=== PATIENT | female | born 1950 | race Caucasian/White ===

== ENCOUNTER → 2016-08-22 16:47 | Outpatient (CLI) | payer BC ==
[2016-06-16 09:18] VITALS: BMI 25.1
[~2016-08-22 16:47] MED LIST: EXFORGE HCT 101 EAC2 PO; LEVOXYL200 MCG PO; PRAVACHOL40 MG PO; PROTONIX40 MG PO; SKELAXIN800 MG PO; ULTRAM50 MG PO; ZEBETA5 MG PO
== END | disposition home or self-care (01) ==
LOC: D.MAMMO 13:00
DX: N64.4 Mastodynia (principal)

== ENCOUNTER 2017-04-17 09:18 | Day surgery (SDC) | payer BC ==
[~2017-04-17] VITALS: Ht 170.2 cm; Wt 72.7 kg
--- NOTE | ~2017-04-17 | OP ---
PATIENT NAME: ALYSSA PUCKETT MEDICAL RECORD: [id number] :48 LOCATION:D.OPS ADMISSION DATE: SURGEON: HUGH OBRIEN MD DATE OF OPERATION: 04/17/2017 PREOPERATIVE DIAGNOSES: 1. Gastroesophageal reflux. 2. Moreno esophagus. POSTOPERATIVE DIAGNOSES: 1. Gastroesophageal reflux. 2. Moreno esophagus. 3. Hiatal hernia. PROCEDURE: Esophagogastroduodenoscopy with antral and distal esophageal biopsies. SURGEON: Hugh Obrien MD PROBATION AGENT: None. BLOOD LOSS: Minimal. ANESTHESIA: IV sedation. COMPLICATIONS: None. The risks, possible complications, and alternatives to the procedure were explained to the patient. She elects to proceed. OPERATIVE COURSE: The patient was conveyed to the endoscopy suite electively on 04/17/2017. IV sedation was induced by the anesthesia staff. A bite block was inserted. A gastroscope was inserted into the mouth. It was advanced easily into the hypopharynx. The esophagus was easily intubated as were stomach and duodenum. Upon withdrawal, retroflexed and angulus views were obtained. Antral biopsies were obtained. Distal esophageal biopsies were obtained. The endoscope was then withdrawn under direct vision. I will see the patient in my office in 2-3 weeks. I will review the results of the biopsies with her at that time. My next planned surveillance upper endoscopy with biopsies will be in 2 years. TRANSINT:[id number] Voice Confirmation ID: [id number] DOCUMENT ID: [id number] HUGH OBRIEN MD CC: LORRI FUENTES DO [id number] DICTATION DATE: 04/17/17 1425 STENOGRAPHER SECRETARY: 04/17/171917 [facility] 04/17/[address] [facility] [address] [place] [address]
--- NOTE | ~2017-04-17 | HP ---
PATIENT: ALYSSA PUCKETT MEDICAL RECORD: [id number] ACCOUNT: [id number] LOCATION:[place] : 48 ADMISSION DATE: 04/17/17 HISTORY AND PHYSICAL EXAMINATION CHIEF COMPLAINT: Moreno esophagus, also gastroesophageal reflux. HISTORY OF PRESENT ILLNESS: The patient is here for EGD with biopsies. The patient has a history of Moreno's. This was diagnosed about a year ago. Interestingly, her father of esophageal cancer. ALLERGIES: PENICILLIN WELL BETADINE. HOME MEDICATIONS: Synthroid, Exforge, Pravachol, Protonix, Skelaxin, tramadol, Zebeta. SOCIAL HISTORY: Ex-smoker. PAST MEDICAL AND SURGICAL HISTORY: Ankle surgery, arthritis, hypothyroidism, on replacement therapy, gastroesophageal reflux, history of hiatal hernia, hypertension, history of cardiac rhythm problems. REVIEW OF SYSTEMS: Negative for CVA or seizures. Negative for renal disease or hepatitis. PHYSICAL EXAMINATION: GENERAL: The patient does not appear acutely ill. She does not appear chronically ill. VITAL SIGNS: Reviewed. HEAD: External ears appear normal. EYES: Extraocular movements are intact. NECK: Trachea is midline. CHEST: No intercostal retractions. PULMONARY: Nonlabored. No stridor. ABDOMEN: There is no peritonitis. IMPRESSION: 1. Moreno esophagus 2. Gastroesophageal reflux. PLAN: EGD with biopsy. TRANSINT:[id number] Voice Confirmation ID: [id number] DOCUMENT ID: [id number] HISTORY AND PHYSICAL [id number] ALYSSA PUCKETT MARILUZ OBRIEN MD CC: [id number] DICTATION DATE: 04/17/17 1403 SUPERVISOR TUBING: 04/17/17 1426 [id number] [place] [address]
[2017-04-17 10:06] VITALS: BP 131/76; Ht 170.2 cm; Wt 72.7 kg
[2017-04-17 10:37] LABS: BASOPHILS 0.2 % (0-2); EOSINOPHILS 5.4 % (0-7); HEMATOCRIT 36.7 % (36.0-48.0); HEMOGLOBIN 12.1 g/dL (12-16); IMMATURE GRANULOCYTES 0.2 % (0-5); LYMPHOCYTES 30.7 % (15-50); MCH 28.6 pg (26.0-34.0); MCV 86.8 fL (80.0-100.0); MEAN PLATELET VOLUME 10.4 fL (7.4-10.4); MONOCYTES 12.8 % (2-11); NEUTROPHILS 50.7 % (40-80); PLATELET COUNT 225 10x3/uL (130-400); RBC 4.23 10x6/uL (4.00-5.40); RDW 16.1 % (11.5-14.5); WBC 5.4 10x3/uL (4.8-10.8)
[2017-04-17 10:50] LABS: ANION GAP 13.7 mmol/L (8-16); CALCIUM 8.9 mg/dL (8.5-10.1); CARBON DIOXIDE 26.5 mmol/L (21.0-32.0); CREATININE - SERUM 0.9 mg/dL (0.6-1.3); POTASSIUM - SERUM 4.2 mmol/L (3.5-5.1)
--- NOTE | 2017-04-17 15:03 | NUR ---
IV DC WITH CATHER TIP INTACT W/O REDNESS OR EDMA
== END 2017-04-17 15:12 | disposition home or self-care (01) ==
LOC: D.OPS 09:18
PROVIDERS: Anesthesiology
DX: K22.70 Barrett's esophagus without dysplasia (principal); K21.9 Gastro-esophageal reflux disease without esophagitis; F17.200 Nicotine dependence, unspecified, uncomplicated; I10 Essential (primary) hypertension; E03.9 Hypothyroidism, unspecified; K44.9 Diaphragmatic hernia without obstruction or gangrene; Z01.812 Encounter for preprocedural laboratory examination

== ENCOUNTER 2018-07-12 08:00 | Outpatient (CLI) | payer MEDICARE, BC ==
[2017-04-17 10:06] VITALS: BMI 25.1
== END 2018-07-12 09:00 | disposition home or self-care (01) ==
LOC: D.MAMMO 08:00
DX: Z12.31 Encounter for screening mammogram for malignant neoplasm of breast (principal)

== ENCOUNTER 2019-07-15 07:29 | Day surgery (SDC) | payer MEDICARE, BC ==
[~2019-07-15] VITALS: Ht 167.6 cm; Wt 70.0 kg
[2019-07-15 09:03] VITALS: BP 135/86; Ht 167.6 cm; Wt 70.0 kg
[2019-07-15 09:43] LABS: ALBUMIN 3.8 g/dL (3.4-5.0); ANION GAP 10.7 mmol/L (8-16); BILIRUBIN - TOTAL 0.55 mg/dL (0.2-1.3); CALCIUM 9.3 mg/dL (8.5-10.1); CARBON DIOXIDE 29.9 mmol/L (21.0-32.0); POTASSIUM - SERUM 3.6 mmol/L (3.5-5.1); PROTEIN - SERUM 7.5 g/dL (6.4-8.2)
--- NOTE | 2019-07-15 12:18 | NUR ---
DC INSTRUCTIONS GIVEN TO PT/FAMILY. STATE UNDERSTANDING. DC'D IV CATH FULLY INTACT.
--- NOTE | 2019-07-15 12:22 | NUR ---
PT LEFT UNIT VIA WC AT 1222
--- NOTE | 2019-07-18 16:51 | OP ---
PATIENT NAME: ALYSSA PUCKETT MEDICAL RECORD: [id number] :48 LOCATION:.[facility] ADMISSION DATE: SURGEON: HUGH OBRIEN MD DATE OF OPERATION: 07/15/2019 PREOPERATIVE DIAGNOSIS: History of Moreno's esophagus. POSTOPERATIVE DIAGNOSES: History of Moreno's esophagus with moderately sized hiatal hernia. PROCEDURES: Esophagogastroduodenoscopy with antral and distal esophageal biopsies. SURGEON: Hugh Obrien MD STUDENT ACTIVITIES DIRECTOR: None. BLOOD LOSS: Minimal. ANESTHESIA: IV sedation. COMPLICATIONS: None. The risks, possible complications and alternatives to the procedure were explained to the patient. ENDOSCOPIC COURSE: The patient was conveyed to endoscopy suite electively on 07/15/2019. IV sedation was induced by the anesthesia staff. A bite block was inserted. A gastroscope was inserted into the mouth. It was advanced easily into the hypopharynx. The esophagus was easily intubated as were the stomach and duodenum. Upon withdrawal, retroflexed and angulus views were obtained. Antral biopsies were obtained to rule out H. pylori. I then withdrew into the distal esophagus. Multiple distal esophageal biopsies were obtained at the Z-line. The endoscope was then withdrawn under direct vision. The patient will see me in the office in 2-3 weeks. I will plan for her next surveillance upper endoscopy to take place in 2-3 years. It has been over 3 years since her last colonoscopy. She does have a history of colon polyps, so sometime in 2020 we should schedule her for colonoscopy. TRANSINT:[id number] Voice Confirmation ID: [id number] DOCUMENT ID: [id number] HUGH OBRIEN MD at 1651 CC: LORRI FUENTES DO [id number] DICTATION DATE: 07/15/19 1149 SHOE COBBLER: 07/15/19 1247 [facility] 07/15/19 [address] [place] [address]
--- NOTE | 2019-07-18 16:51 | HP ---
PATIENT: ALYSSA PUCKETT MEDICAL RECORD: [id number] ACCOUNT: [id number] LOCATION:[place] : 48 ADMISSION DATE: 07/15/19 PCP: LORRI FUENTES DO HISTORY AND PHYSICAL EXAMINATION PRINCIPAL DIAGNOSIS: History of Moreno's esophagus. HISTORY OF PRESENT ILLNESS: The patient has a history of Moreno's esophagus and is here for upper endoscopy with biopsies. This is a surveillance upper endoscopy. She also has a history of colon polyps and her last colonoscopy was on 06/16/2016 and at that time two colon polyps were removed. Therefore, sometime in the next year, she needs to undergo surveillance colonoscopy. She has had gastroesophageal reflux, which is controlled on medication. No dysphagia. The risks, possible complications and alternatives to the procedure were explained to the patient. ALLERGIES: PENICILLIN AND IODINE. HOME MEDICINES: Have been reviewed. PAST MEDICAL AND SURGICAL HISTORY: Hypertension; atrial fibrillation which appears to be a new onset atrial fibrillation; hypothyroidism, on replacement therapy; hypercholesterolemia; also history of hiatal hernia and arthritis. PHYSICAL EXAMINATION: GENERAL: The patient does not appear acutely ill. She does not appear chronically ill. VITAL SIGNS: Reviewed. EARS: External ears appear normal. EYES: Extraocular movements are intact. NECK: Trachea is midline. CHEST: No intercostal retractions. PULMONARY: Nonlabored. CARDIOVASCULAR: Irregular rate and rhythm. IMPRESSION: 1. History of Moreno's esophagus, in need of surveillance upper endoscopy with biopsies. 2. History of colon polyps. 3. New-onset atrial fibrillation. PLAN: Upper endoscopy with biopsies. Colonoscopy sometime later in 2019 and a referral to a ammonia distiller due to atrial fibrillation, which is new onset and she is in a controlled ventricular rate. TRANSINT:[id number] Voice Confirmation ID: [id number] DOCUMENT ID: [id number] HISTORY AND PHYSICAL [id number] ALYSSA PUCKETT MARILUZ OBRIEN MD at 1651 CC: LORRI FUENTES DO [id number] DICTATION DATE: 07/15/19 1132 MASTERCAM PROGRAMMER: 07/15/19 1158 [facility] 07/15/19 [address] [place] [address]
== END 2019-07-15 12:22 | disposition home or self-care (01) ==
LOC: D.OPS 07:29
PROVIDERS: Anesthesiology; ATTEND Surgery
DX: K44.9 Diaphragmatic hernia without obstruction or gangrene (principal)

== ENCOUNTER → 2019-07-17 10:00 | Outpatient (CLI) | payer MEDICARE, BC ==
[2019-07-15 09:03] VITALS: BMI 24.9
== END | disposition home or self-care (01) ==
LOC: D.MAMMO 05-17 08:15
PROVIDERS: ATTEND Family Medicine
DX: Z12.31 Encounter for screening mammogram for malignant neoplasm of breast (principal)

== ENCOUNTER → 2019-12-08 17:00 | Outpatient (CLI) | payer MEDICARE, BC ==
[2019-08-27 08:25] VITALS: BMI 27.0
[~2019-12-08 17:00] MED LIST changes: +ALBUTEROL SULF8.5 GM INH; +BAYER CHEWABLE81 MG PO; +BETAPACE 80 MG80 MG PO; +ELIQUIS5 MG PO; +PLAVIX75 MG PO
[2019-12-08 17:13] LABS: HEMATOCRIT 35.5 % (36.0-48.0); HEMOGLOBIN 11.1 g/dL (12-16); LYMPHOCYTES 16.8 % (15-50); MCH 25.7 pg (26.0-34.0); MCHC 31.3 g/dL (31.0-37.0); MCV 82.2 fL (80.0-100.0); MEAN PLATELET VOLUME 10.7 fL (7.4-10.4); NEUTROPHILS 64.8 % (40-80); PLATELET COUNT 253 10x3/uL (130-400); RBC 4.32 10x6/uL (4.00-5.40); RDW 14.8 % (11.5-14.5); WBC 6.9 10x3/uL (4.8-10.8)
== END | disposition home or self-care (01) ==
LOC: D.LABREF 17:00
PROVIDERS: ATTEND Internal Medicine Gastroenterology
DX: K64.0 First degree hemorrhoids (principal)

== ENCOUNTER → 2020-04-01 07:57 | Outpatient (CLI) | payer MEDICARE, BC ==
[2019-08-27 08:25] VITALS: BMI 27.0
== END | disposition home or self-care (01) ==
LOC: D.HCCECHO 07:57
PROVIDERS: ATTEND Internal Medicine Cardiovascular Disease
DX: I48.91 Unspecified atrial fibrillation (principal)